=== PATIENT | male | born 1960 | race Caucasian/White ===

== ENCOUNTER 2021-05-21 07:33 | Day surgery (SDC) | payer BC ==
[~2021-05-21 07:33] MED LIST: Lactated Ringers 1,000 ML IV SCH; Lidocaine 1%/Sod Bicarbonate in NS 8.4% 1 ML Syringe IDERM PRN; Sodium Chloride 0.9% 10 ML Syringe FLUSH PRN; Sodium Chloride 0.9% 10 ML Syringe FLUSH SCH
[2021-05-21] MEDS ORDERED: Albuterol 0.083% 2.5 MG/3 ML Neb Soln NEB SCH (07:56)
[2021-05-21] MEDS ORDERED: Propofol 200 MG/20 ML SDV ONE ×3 (08:53→10:14)
[2021-05-21] MEDS ORDERED: Midazolam 1 MG/ML 2 ML SDV ONE (08:53)
[2021-05-21] MEDS ORDERED: fentaNYL 100 MCG/2 ML SDV ONE (09:26)
== END 2021-05-21 11:02 | disposition home or self-care (01) ==
LOC: JD.SDS 07:33
PROVIDERS: ATTEND Surgery
DX: Z12.11 Encounter for screening for malignant neoplasm of colon (principal); D12.8 Benign neoplasm of rectum; D12.5 Benign neoplasm of sigmoid colon; D12.0 Benign neoplasm of cecum; K55.21 Angiodysplasia of colon with hemorrhage; K57.30 Diverticulosis of large intestine without perforation or abscess without bleeding; K64.1 Second degree hemorrhoids; F17.210 Nicotine dependence, cigarettes, uncomplicated; I48.91 Unspecified atrial fibrillation; I10 Essential (primary) hypertension; Z80.0 Family history of malignant neoplasm of digestive organs; Z86.16 Personal history of COVID-19; Z98.890 Other specified postprocedural states; Z79.82 Long term (current) use of aspirin; Z79.899 Other long term (current) drug therapy
CPT/HCPCS: 45380; 45382; 45385; J2250; J2704; J3010; J7120; 00812